=== PATIENT | male | born 1970 | race Native Hawaiian/Other Pacific Islander ===

== ENCOUNTER 2017-11-02 22:14 | Emergency (ER) | payer OTHER ==
[~2017-11-02] VITALS: Ht 180.3 cm; Wt 144.2 kg
[2017-11-02] MEDS ORDERED: [UNRECOGNIZED DRUG - OTHER] OR (22:27)
[2017-11-02] MEDS ORDERED: CIPR500T PO (22:28)
[2017-11-02] MEDS ORDERED: METRONIDAZOL500 MG PO (22:28)
== END 2017-11-02 23:10 | disposition home or self-care (01) ==
LOC: ED 22:14
DX: L02.32 Furuncle of buttock (principal)
CPT/HCPCS: 96372; 99283; J1885

== ENCOUNTER 2018-03-04 18:39 | Emergency (ER) | payer OTHER ==
[~2018-03-04] VITALS: Ht 180.3 cm; Wt 144.2 kg
[~2018-03-04 18:39] MED LIST: CIPR500T PO; METRONIDAZOL500 MG PO; [UNRECOGNIZED DRUG - OTHER] OR
== END 2018-03-04 20:51 | disposition home or self-care (01) ==
LOC: ED 18:39
DX: J02.9 Acute pharyngitis, unspecified (principal)
CPT/HCPCS: 87081; 87880; 99282